=== PATIENT | male | born 1990 | race Caucasian/White ===

== ENCOUNTER 2017-01-25 11:17 | Emergency (ER) | payer SELFPAY ==
[~2017-01-25] VITALS: Ht 165.1 cm; Wt 53.0 kg
[2017-01-25 11:20] VITALS: Ht 165.1 cm; Wt 53.0 kg
== END 2017-01-25 12:30 | disposition left against medical advice (07) ==
LOC: FTE 11:17
DX: Z53.21 Procedure and treatment not carried out due to patient leaving prior to being seen by health care provider (principal)